=== PATIENT | male | born 1935 | race Caucasian/White ===

== ENCOUNTER 2019-03-13 06:08 | Inpatient (IN) | payer MEDICARE, OTHER ==
[~2019-03-13] VITALS: Ht 175.3 cm; Wt 61.7 kg
[2019-03-13] VITALS (25 sets, daily range): BP systolic 75–178; BP diastolic 48–75
[~2019-03-13 06:08] MED LIST: ANORO ELLIPTA1 EACH INH; CYANOCOBAL1000 MCG/1 IM; ERGOCALCIF50000 UNIT PO; PROSCAR 5MG TABL5 MG PO; VENTOLIN HFA 1818 GM INH; ZOCOR20 MG PO
[2019-03-13 06:57] LABS: ABSOLUTE EOSINOPHILS 0.5 thou/uL (0.0-0.7); ABSOLUTE MONOCYTES 0.6 thou/uL (0.0-1.2); ABSOLUTE NEUTROPHILS 3.5 thou/uL (1.6-8.1); BASOPHILS 0.7 %; EOSINOPHILS 7.6 %; HEMATOCRIT 45.4 % (42.0-52.0); HEMOGLOBIN 15.5 gm/dL (14.0-18.0); LYMPHOCYTES 29.9 %; MCH 32.7 pg (26.0-34.0); MCV 96.1 fL (80.0-100.0); MPV 7.1 fl. (7.2-11.1); NUCLEATED RBCS 0 /100WBC; PLATELET COUNT* 155 thou/uL (150-400); POLYS 52.8 %; RBC 4.73 mil/uL (4.50-6.00); RDW-CV 13.2 % (10.5-14.5); WBC 6.6 thou/uL (4.0-11.0)
[2019-03-13 07:06] LABS: CALCIUM 9.8 mg/dL (8.5-10.1); CREATININE 1.9 mg/dL (0.6-1.3); POTASSIUM 4.3 mmol/L (3.5-5.1)
--- NOTE | 2019-03-13 10:59 | NUR ---
1034 PT ADMITTED TO ICU 7 FROM PACU POST CAROTID. SEE ADMISSION AND HISTORY
--- NOTE | 2019-03-13 15:15 | EKG ---
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: jSJAYA : 1935 Requested By: uBck Ribera Order Number: [id number] Kermit MD: Maykel Guzmán Measurements Intervals [place] Rate: 83 P: 84 MA: 177 QRS: -103 QRSD: 131 T: 54 QT: 393 QTc: 462 Interpretive Statements Sinus rhythm Probable left atrial enlargement RBBB and LAFB No previous ECG available for comparison Electronically Signed On 03-13-2019 15:14:58 EQUINE BREEDER by Maykel Guzmán [email or web address] <ELECTRONICALLY SIGNED> By: Maykel Guzmán MD, [facility] 03/13/19 1514 [phone] Maykel Guzmán MD, FACC /EPI
--- NOTE | 2019-03-13 16:20 | NUR ---
1545 URINARY CATHETER PLACED AFTER SEVERAL ATTEMPTS BY PATIENT TO VOID. EXPRESSES RELIEF UPON PLACEMENT OF CATHETER.
--- NOTE | 2019-03-13 17:13 | NUR ---
PATIENT PROGRESSING TOWARDS GOALS. RECEIVED FROM PACU AT 1034 THIS MORNING AND HAS REMAINED OFF OF CARDENE SINCE PACU. NEURO STATUS CHARTED AND POSTOP INCISION IS BENIGN. REMAINS ON CO2 MONITORING. APPETITE GOOD WITH INTACT SWALLOW. WAS UNABLE TO VOID. POWER CATHETER PLACED. SEVERAL VISITORS. PLAN S FOR PATIENT TO DISCHARGE HOME TOMORROW.
[2019-03-14] VITALS (11 sets, daily range): BP systolic 98–117; BP diastolic 59–67
--- NOTE | 2019-03-14 06:02 | NUR ---
VITALS STABLE, AFEBRILE. PT SLEPT THROUGH THE NIGHT. NO CHANGE TO INCISION SITE, PT DENIES PAIN. UNEVENTFUL NIGHT. CALL LIGHT WITHIN REACH. WILL CONTINUE MONITORING.
[2019-03-14 09:54] LABS: ABSOLUTE BASOPHILS 0.1 thou/uL (0.0-0.2); ABSOLUTE EOSINOPHILS 0.1 thou/uL (0.0-0.7); ABSOLUTE LYMPHOCYTES 1.5 thou/uL (0.8-5.3); ABSOLUTE MONOCYTES 0.7 thou/uL (0.0-1.2); ABSOLUTE NEUTROPHILS 8.3 thou/uL (1.6-8.1); BASOPHILS 0.5 %; EOSINOPHILS 1.1 %; HEMATOCRIT 43.6 % (42.0-52.0); HEMOGLOBIN 14.9 gm/dL (14.0-18.0); LYMPHOCYTES 14.1 %; MCH 32.9 pg (26.0-34.0); MCHC 34.1 g/dL (28.0-37.0); MCV 96.4 fL (80.0-100.0); MONOCYTES 6.6 %; MPV 7.1 fl. (7.2-11.1); NUCLEATED RBCS 0 /100WBC; PLATELET COUNT* 143 thou/uL (150-400); POLYS 77.7 %; RBC 4.53 mil/uL (4.50-6.00); RDW-CV 12.8 % (10.5-14.5); WBC 10.7 thou/uL (4.0-11.0)
[2019-03-14 09:59] LABS: CALCIUM 9.5 mg/dL (8.5-10.1); POTASSIUM 4.5 mmol/L (3.5-5.1)
[2019-03-14] MEDS ORDERED: NORCO 5-325 TA1 EAC1 PO (10:47)
--- NOTE | 2019-03-14 12:00 | NUR ---
PT A&O x4. VSS. PT WALKED THE UNIT, STB ASSIST. POWER'S CATH OUT. TOLERATED DIET. NO N/V. DISCHARGE EDUCATION GIVEN. PT LEFT THE UNIT AT 1145 WITH HIS SPOUSE.
--- NOTE | 2019-03-14 16:31 | OP ---
[facility] [address] [place] [address] OPERATIVE REPORT Name: HARVEYJOSE Tonei REGALADO Room: [address] IN M.R.#: [id number] Admission: 03/13/19 Attend Phys: Isabel Woodard MD Discharge: 03/14/19 Date of : 37 Report #: [id number] THIS REPORT FOR: //name// CC: Tequila Ribera DATE OF SERVICE: 03/13/2019 PREOPERATIVE DIAGNOSIS: Severe right internal carotid artery stenosis. POSTOPERATIVE DIAGNOSIS: Severe right internal carotid artery stenosis. PROCEDURE: 1. Right carotid endarterectomy with patch angioplasty. 2. Intraoperative ultrasound with interpretation. FINDINGS ON ULTRASOUND: 1. Normal waveform velocity identified in the common and internal carotid arteries. 2. No flaps or defects identified in grossman-scale imaging. 3. Patent flow identified in the external carotid artery on color flow imaging. SURGEON: Buck Ribera MD. ORTHODONTIC TECHNICIAN ASSISTANT: AYANNA Miner. COMPLICATIONS: None. ESTIMATED BLOOD LOSS: 100 mL. SPECIMEN: Includes plaque. ANESTHESIA: General. INDICATIONS FOR PROCEDURE: The patient is a very pleasant 83-year-old white male who has severe right internal carotid artery stenosis. This is currently asymptomatic. We plan for right carotid endarterectomy today. Informed consent was obtained from the patient with risks including but not limited to bleeding, infection, need for further surgery, pain, , heart attack, stroke, cranial nerve injury. The patient understood all these risks and was agreeable to proceed. DESCRIPTION OF PROCEDURE: The patient was taken to the operating room and placed in supine position. General anesthesia was initiated. Right neck and chest were prepped and draped in usual sterile fashion. Timeout was performed. I created a transverse incision in the patient's right [place] [address] OPERATIVE REPORT Name: JOSE HARVEY JR Room: [address]#: [id number] Admission: 03/13/19 Attend Phys: Isabel Woodard MD Discharge: 03/14/19 Date of : 37 Report #: [id number] dissections were carried down to the sternocleidomastoid. I followed the anterior border of the muscle down to the jugular vein. I divided the facial vein between ties and clips. I entered the carotid sheath. I controlled the common carotid artery as well as the branches of the internal and external carotid artery. I heparinized the patient at this point in time. I injected the carotid bulb with 1% lidocaine. I created a longitudinal arteriotomy from the common carotid artery onto the internal carotid artery. I performed endarterectomy in the standard fashion using a Iola elevator and a pair of pickups. I tacked down the leading edge leading into the internal carotid artery. I performed eversion endarterectomy of the external carotid artery. I took my time to remove the bits and pieces of plaque from the posterior wall. I closed my arteriotomy with a bovine pericardial patch and a running 6-0 Prolene suture. At the completion of the repair, there was adequate hemostasis and excellent blood flow into the internal and external carotid arteries. I performed intraoperative ultrasound to confirm the above. I corrected the heparin with protamine, controlled bleeding as needed with electrocautery, ties, clips and Jenna, irrigated the wound bed with antibiotic saline before closing it with 2-0 Vicryl, 3-0 Vicryl and Monocryl for the skin. Incision was dressed with Dermabond. The patient was taken alert and awake to recovery room in good condition. All needle and instrument counts were correct at the end of the case. <ELECTRONICALLY SIGNED> By: Marquis Feldman MD, FACS 03/14/19 1631 0907 [id number] Ribera MD /nt
--- NOTE | 2019-03-17 15:07 | PATH ---
[facility] [address] [place] [address] PATHOLOGY RPT PROCEDURE Name: JOSE FRIAS JR Room: [address] IN M.R.#: [id number] Admission: 03/13/19 Date of : 37 Discharge: 03/14/19 Report #: [id number] Path Case #: [id number] [facility] Accession Number: [id number] . 01 Material submitted: . carotid body - RIGHT CAROTID PLAQUE. Modifiers: right . 01 Clinical history: . Right carotid stenosis . 02 Diagnosis: Right carotid plaque: - Fibrointimal atherosclerotic plaque with calcification. (SLICK/db; 03/17/2019) LBQ 03/17/2019 1352 Local . 02 Electronically signed: . Clarence Das MD, Pathologist NPI- [id number] . 01 Gross description: . The specimen is received in formalin, labeled "Jose Frias Jr, right carotid plaque" and consists of a rubbery to calcified segment of tissue measuring 2.7 x 1.5 x 0.8 cm. The lumen is focally stenotic and calcified. Inspector Timers sections are submitted in A1 following decalcification. (SDY; 03/14/2019) SYU/SYU 03/14/2019 1220 Local . 02 Pathologist provided ICD-10: I65.21 . 02 CPT . 940748, [id number] Specimen Comment: A courtesy copy of this report has been sent to [phone], [phone] Specimen Comment: [phone] Specimen Comment: Report sent to and Performed at: [address], [place] [id number] MD Hector Mars MD Phone: [phone] Performed at: 02 [facility] [address], [place], [place] [id number] MD Clarence Das MD Phone: [phone]
== END 2019-03-14 11:45 | disposition home or self-care (01) | DRG 38 ==
LOC: M.TBA 06:08 → M.ICU 06:08 → M.PRE 07:08 → M.ICU 10:34
PROVIDERS: Physician Assistant Surgical; Surgery Vascular Surgery; ADMIT Internal Medicine
DX: I65.21 Occlusion and stenosis of right carotid artery (principal); N17.9 Acute kidney failure, unspecified; F17.210 Nicotine dependence, cigarettes, uncomplicated; N18.9 Chronic kidney disease, unspecified; E78.5 Hyperlipidemia, unspecified; I12.9 Hypertensive chronic kidney disease with stage 1 through stage 4 chronic kidney disease, or unspecified chronic kidney disease; I73.9 Peripheral vascular disease, unspecified; J43.9 Emphysema, unspecified; N40.0 Benign prostatic hyperplasia without lower urinary tract symptoms; Z91.041 Radiographic dye allergy status; Z82.49 Family history of ischemic heart disease and other diseases of the circulatory system; Z79.899 Other long term (current) drug therapy